=== PATIENT | male | born 1965 | race Caucasian/White ===

== ENCOUNTER 2017-08-26 15:21 | Outpatient (CLI) | payer OTHER ==
--- NOTE | 2017-08-26 17:17 | Diagnostic Imaging Report ---
HONEY CONTRERAS [facility] [address] [facility] [address] [place], [place]. 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 Flank discomfort. Comparison exams: None available Technique: CT Abdomen/pelvis without contrast protocol. Findings: Prominence of the right kidney when compared with the left. Bilateral calyceal calcifications. Mild inflammatory changes around the right kidney. Dilation of the right ureter to a mid ureteral ureterolithiasis measuring 4 mm. Remainder of the right ureter without abnormality. Left ureter without abnormal dilation or central calcification. Bladder margins are within normal limits. Liver, spleen, adrenal glands, pancreas and gallbladder are without irregularity given exam technique. No gallstone. Abdominal aorta with mild peripheral atherosclerotic disease. No aneurysm. Cardiac silhouette is not enlarged. No pericardial effusion. Bowel without contrast limiting evaluation. No evidence for acute mesenteric inflammation or free air. No small bowel dilation. Stool within the straight large bowel limiting evaluation. Surgical changes in the region of the appendix. Osseous structures demonstrate degenerative changes. Lung bases without infiltrate. No effusion. Impression: 4 mm mid right ureterolithiasis with proximal ureteral dilation - obstructive uropathy. Bilateral nephrolithiasis. No gallstone. No upper abdominal organ acute inflammatory process. No abnormal bowel dilation or inflammation. Electronically signed on Aug 26, 2017 4:09:47 PM COGENERATION OPERATOR by: Mac DENISE
== END 2017-08-26 15:35 ==
LOC: RAD 15:21
PROVIDERS: ATTEND Physician Assistant
DX: R10.31 Right lower quadrant pain (principal); R10.9 Unspecified abdominal pain; R31.9 Hematuria, unspecified
CPT/HCPCS: 74176